=== PATIENT | male | born 1940 | race Caucasian/White ===

== ENCOUNTER → 2022-04-20 | Outpatient (CLI) | payer MEDICARE ==
--- NOTE | 2022-04-20 20:25 | PCM.ECHO ---
APPROVED REPORT EXAM: Comprehensive 2D, Doppler, and color-flow Echocardiogram. 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 1.40 m/s AoV VTI 31.45 cm AO Peak GR. 8.10 mmHg AO Mean GR. 3.80 mmHg LVOT VTI 19.37 cm LVOT Peak Gino. 0.78 m/s TITA(VTI)/BSA 2.14 cm2/m2 TITA (VTI) 2.14 cm2 Mitral Valve MV E Velocity 0.95m/s MR Peak Gr. 51.55mmHg MV A Velocity 0.95m/s TDI Lateral E' P. V 0.09m/s Medial E' P. V 0.10m/s Pulmonary Valve PV Peak Velocity 0.75m/s PV Peak Grad. 2.45mmHg RVOT VTI 19.65cm Tricuspid Valve TR P. Velocity 1.85m/s RAP ESTIMATE 10.00mmHg TR Peak Gr. 14.40mmHg RVSP 24.40mmHg LEFT VENTRICLE The left ventricle is normal size. The left ventricular systolic function is normal. The left ventricular ejection fraction is within the normal range. There is normal left ventricular wall thickness. There is normal LV segmental wall motion. Mild diastolic dysfunction is present (impaired relaxation pattern). There is no ventricular septal defect visualized. No left ventricle thrombus noted on this study. LVEF is 65-70%. RIGHT VENTRICLE The right ventricle is normal size. The right ventricular systolic function is normal. There is normal right ventricular wall thickness. ATRIA The left atrium size is normal. The right atrium size is normal. The interatrial septum is intact with no evidence for an atrial septal defect. AORTIC VALVE The aortic valve is normal in structure. There is no aortic valvular stenosis. No aortic regurgitation is present. There is no aortic valvular vegetation. MITRAL VALVE The mitral valve is normal in structure. There is no mitral valve stenosis. Mild to moderate mitral regurgitation. There is no evidence of mitral valve vegetations. TRICUSPID VALVE The tricuspid valve is normal in structure. There is no tricuspid valve stenosis. Mild tricuspid regurgitation. There is no tricuspid valve vegetations. PULMONIC VALVE Pulmonic valve is not well visualized. There is no pulmonic valvular stenosis. There is no pulmonic valvular regurgitation. GREAT VESSELS The aortic root is normal in size. Pulmonary artery is not well visualized. Aortic arch is not well visualized. The IVC is normal in size and collapses >50% with inspiration. PERICARDIUM There is no pericardial effusion. There is no pleural effusion. Other Information Study Quality: FairTechnically Limited <Conclusion> The left ventricular systolic function is normal. LVEF is 65-70%. Mild diastolic dysfunction is present (impaired relaxation pattern). Mild to moderate mitral regurgitation. Mild tricuspid regurgitation. Electronically signed by : MANASA MILLAN. 04/20/2022 20:24:41
== END | disposition home or self-care (01) ==
LOC: RT 12:43
PROVIDERS: ATTEND Internal Medicine Cardiovascular Disease
DX: I08.1 Rheumatic disorders of both mitral and tricuspid valves (principal); I77.810 Thoracic aortic ectasia
CPT/HCPCS: 93306

== ENCOUNTER → 2022-06-07 | Outpatient (CLI) | payer MEDICARE, MEDICAID ==
--- NOTE | 2022-06-07 18:15 | DIREP ---
PROCEDURE:CT THORACIC ANGIOGRAM TECHNIQUE:Following the intravenous administration of contrast material, axial cuts were obtained through the chest. Multiplanar / 3-D reconstructions are provided. The images were viewed at lung and soft tissue settings. COMPARISON:[facility], CT, CTA CHEST NON PULMONARY, 06/19/2018, 12:36 PM. INDICATIONS:I77.810 THORACIC AORTIC ECTASIA FINDINGS: PULMONARY ARTERIES:This exam was dedicated to evaluation of the thoracic aorta the density in the pulmonary artery is not sufficient to evaluate for pulmonary embolism. LUNGS:Mild to moderate dependent atelectasis in the lower lobes. There is a pulmonary nodule in the minor fissure measuring 1.2 cm. This is favored to represent intrapulmonary lymph node. There is an additional nodule inferiorly in the right middle lobe measuring 0.6 cm. This nodule is unchanged with comparison to 2018, therefore benign. There is thick calcified granuloma in the lingula measuring 0.3 cm. PLEURA:Normal. CARDIAC:Mild cardiomegaly. There appear to be coronary calcifications, contrast images only. THORACIC AORTA:Aortic root measures 4.6 cm. Sino-tubular junction measures 3.6 cm. Ascending aorta measures 4.8 cm, aneurysmal. Proximal descending thoracic aorta measures 3.1 cm, aneurysmal. Mid descending thoracic aorta measures 3 cm, aneurysmal. Distal descending thoracic aorta measures 3.3 cm aneurysmal. Proximal abdominal aorta measures 2.9 cm. No dissection. Celiac and SMA are patent. The right and left renal arteries are patent. MEDIASTINUM:Normal. BONES:Normal. THYROID:Normal. OTHER:Large hiatal hernia. The abdomen was imaged to just below the origin of the SHANNAN. The infrarenal abdominal aorta measures 3.1 cm, aneurysmal. The entirety of the infrarenal abdominal aorta is not included within the field of view. There a few low-density lesions in the liver that are too small for accurate density measurement. The largest measures 1.4 cm near the fissure for the ligamentum teres and measures fluid density. There is a 5.4 cm left renal cyst. There is central canal narrowing in the visualized lumbar spine. 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 No dissection. Dictated by: Cristal Church MD on 06/07/2022 at 06:06 PM
== END | disposition home or self-care (01) ==
LOC: RAD 12:54
PROVIDERS: ATTEND Internal Medicine Cardiovascular Disease
DX: I77.810 Thoracic aortic ectasia (principal); K44.9 Diaphragmatic hernia without obstruction or gangrene; J98.11 Atelectasis; I51.7 Cardiomegaly
CPT/HCPCS: 71275; 36415; 82565; Q9965

== ENCOUNTER → 2023-06-15 | Outpatient (CLI) | payer MEDICARE, OTHER ==
[2023-06-15 10:21] LABS: CREATININE SERUM 1.2 mg/dL (0.59-1.40)
== END | disposition home or self-care (01) ==
LOC: RAD 09:46
PROVIDERS: ATTEND Internal Medicine Cardiovascular Disease
DX: I71.21 Aneurysm of the ascending aorta, without rupture (principal); R91.8 Other nonspecific abnormal finding of lung field; K44.9 Diaphragmatic hernia without obstruction or gangrene
CPT/HCPCS: 71275; 36415; 82565; Q9965

== ENCOUNTER → 2025-02-17 | Outpatient (CLI) | payer MEDICARE | END | disposition home or self-care (01) | LOC: RAD 10:15 | PROVIDERS: ATTEND Nurse Practitioner | DX: M25.722 Osteophyte, left elbow (principal); M25.422 Effusion, left elbow; M71.522 Other bursitis, not elsewhere classified, left elbow; M79.89 Other specified soft tissue disorders | CPT/HCPCS: 73070-LT ==